=== PATIENT | female | born 2000 | race African-American/Black ===

== ENCOUNTER 2021-03-10 23:06 | Emergency (ER) | payer SELFPAY ==
[~2021-03-10] VITALS: Ht 162.6 cm; Wt 86.0 kg
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
[2021-03-10] MEDS ORDERED: KETOROLAC 15 MG/ML VIAL. IVP ONE (23:30)
[2021-03-10] MEDS ORDERED: IV NORMAL SALINE 1000ML BAG 1,000 ML IV ONE (23:30)
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
[2021-03-11 01:24] VITALS: BP 148/97
== END 2021-03-11 02:29 | disposition home or self-care (01) ==
LOC: EEVIPCON 23:06 → ER 23:06
DX: S40.011A Contusion of right shoulder, initial encounter (principal); S00.03XA Contusion of scalp, initial encounter; S10.93XA Contusion of unspecified part of neck, initial encounter; Y08.89XA Assault by other specified means, initial encounter; Y93.89 Activity, other specified; Y92.89 Other specified places as the place of occurrence of the external cause; Y99.8 Other external cause status
CPT/HCPCS: 70450; 71045; 72125; 73030; 99284-25